=== PATIENT | female | born 1950 | race Caucasian/White ===

== ENCOUNTER 2017-01-10 13:27 | Inpatient (IN) | payer OTHER ==
[~2017-01-10] VITALS: Ht 160 cm; Wt 78.7 kg
--- NOTE | ~2017-01-10 | EKG ---
[address] [address] ELECTROCARDIOGRAM REPORT Name: SAMAN LAZARO Room #: 214-P ADM IN M.R.#: [id number] Admission: 01/11/17 Attend Phys: Ash Juarez MD Discharge: Date of : 46 Report #: [id number] THIS REPORT FOR: //name// [facility] Test Date: 2017-01-10 Test Time: 15:23:32 Pat Name: SAMAN LAZARO Department: Room: 214 P Gender: F Goodwill Representative: Tila RUIZ : 1950 Requested By: Aide Nicholson Order Number: [id number] MD: Moses Han Measurements Intervals [place] Rate: 90 P: 49 ME: 153 QRS: -21 QRSD: 109 T: 29 QT: 387 QTc: 474 Interpretive Statements Sinus rhythm Inferior infarct, old No previous ECG available for comparison Electronically Signed On 01-11-2017 13:29:50 CDT by Moses Han [email or web address] <ELECTRONICALLY SIGNED> By: Moses Han MD 01/11/17 1329 D: [id number] 22 Moses Han MD /FATMATA
--- NOTE | ~2017-01-10 | P ---
[facility] [place] [address] PROCEDURE REPORT Name: SAMAN LAZARO Room #: 214-P [facility] IN M.R.#: [id number] Admission: 01/11/17 Attend Phys: Ash Juarez MD Discharge: Date of : 46 Report #: [id number] THIS REPORT FOR: //name// CC: Dr. Kayla Earl MD DATE OF SERVICE: 01/11/2017 PROCEDURE PERFORMED: Upper endoscopy with bleeding control. HISTORY OF PRESENT ILLNESS: The patient is a 66-year-old female who is on Coumadin for history of DVT and pulmonary embolus. INR was supratherapeutic at 11 and came in with a hemoglobin of 7.3, is dropped to 5.9. She has been having black tarry stools. No previous history of GI bleed. She is on PPI therapy. Now, her Coumadin has been reversed and her INR today is 1.2, hemoglobin today 8.8, this was after transfusion. Plan is for EGD. DESCRIPTION OF PROCEDURE: The risks and benefits of the procedure were explained to the patient, those risks including but not limited to bleeding, perforation, the risk of sedation. She understood these risks and gave informed consent. Sedation was given using propofol per anesthesia. Next, using a standard Fujinon upper endoscope, the scope was placed in the patient's mouth and advanced under direct vision through the esophagus, stomach and into the second portion of the duodenum. The esophagus was normal throughout. The GE junction was normal. Overall, the gastric mucosa was normal in the fundus; however, in the body and antrum, there were multiple small erosions and a few small, clean white based ulcers. These were approximately 3 mm in size. There was no active bleeding. There was no blood noted throughout the entire exam today as well. The pylorus was normal and patent. The duodenal bulb was normal. In the first portion of the duodenum, a single 3 mm nonbleeding AVM was noted. This was cauterized with 7-Turkmen bipolar cautery. Another small AVM was noted in the second portion of the duodenum, also cauterized. Again, no active bleeding of either lesion. At this point, the scope was then withdrawn and the procedure terminated. The patient tolerated the procedure well. IMPRESSION: 1. 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 2. Multiple small erosions and a few small ulcers in the gastric antrum and body, no active bleeding. RECOMMENDATIONS: Etiology of recent melanotic stools may be secondary to ulcers or AVMs as described above. At this point, would recommend continue to hold [facility] [address] [place] [address] PROCEDURE REPORT Name: SAMAN LAZARO Room #: 214-P [facility] IN M.R.#: [id number] Admission: 01/11/17 Attend Phys: Ash Juarez MD Discharge: Date of : 46 Report #: [id number] Coumadin, continue PPI therapy and monitor. If the patient has further drop in her hemoglobin, may need to consider an M2 capsule of her small bile. Thank you for allowing me to participate in her care. <ELECTRONICALLY SIGNED> By: Juan Curry MD 01/11/17 1443 1255 1309 Juan Curry MD /nt
[~2017-01-10 13:27] MED LIST: ADVAIRDISKUS; ALBUTEROL NEB INH; AMITRIPTYLINE H50 M2 PO; ASPIRIN81 M2 PO; ATROVENT30 ML INH; COMBIVENT INH; GLUCOPHAGE500 MG PO; HYDROCODON-ACE1 EAC1 PO; IBUPROFEN 800800 M1 PO; JANTOVEN5 MG PO; K-DUR 20 MEQ T20 MEQ PO; LASIX 40 MG TAB40 M1 PO; LIPITOR40 MG PO; LORTAB 5 MG/5001 TA1 PO; PACERONE 200 M200 M1 PO; PAXIL30 MG PO; PHENERGAN12.5 M1 RE; PREDNISONE 10 M10 M1 PO; PROVENTIL HFA6.7 G1 INH; RECLAST 55 MG/100 M IV; SYMBICORT160 MCG/4. SPRAY; TESSALON200 MG PO
[2017-01-10 14:29] VITALS: BP 136/68
[2017-01-10] MEDS ORDERED: LEXAPRO 10 MG T10 MG PO (15:34)
[2017-01-10] MEDS ORDERED: SEROQUEL 50 MG50 MG PO (15:35)
[2017-01-10] MEDS ORDERED: IBUPROFEN 800800 M1 PO (15:36)
[2017-01-10] MEDS ORDERED: FLEXERIL PO (15:37)
[2017-01-10 16:14] LABS: URINE BILIRUBIN NEGATIVE (Negative); URINE BLOOD 3+ (Negative); URINE COLOR YELLOW; URINE GLUCOSE-RANDOM* NEGATIVE (Negative); URINE KETONES NEGATIVE (Negative); URINE LEUKOCYTES-REFLEX 2+ (Negative); URINE PROTEIN (DIPSTICK) 1+ (Negative); URINE UROBILINOGEN 0.2 E.U./dl (0.2-1.0)
[2017-01-10 16:25] LABS: CASTS None Seen /LPF (None Seen); CRYSTALS None Seen /LPF (None Seen); SQUAMOUS 0-3 Few /LPF (0-3); URINE RBC >20 Many /HPF (0-2); URINE WBC-REFLEX 6-15 Few /HPF (0-5)
[2017-01-10 16:37] VITALS: BP 127/57
[2017-01-10 16:58] LABS: WBC 16.7 thou/uL (4.0-11.0)
[2017-01-10 16:59] LABS: MCH 27.8 pg (26.0-34.0); MCHC 32.5 g/dL (28.0-37.0); MCV 85.4 fL (80.0-100.0); PLATELET COUNT 316 thou/uL (150-400); RBC 2.14 mil/uL (4.20-5.00); RDW 15.7 % (10.5-14.5)
[2017-01-10 17:01] LABS: MANUAL DIFF YES
[2017-01-10 17:02] LABS: HEMATOCRIT 18.3 % (37.0-47.0); HEMOGLOBIN 5.9 gm/dL (12.0-15.0)
[2017-01-10 17:05] LABS: CALCIUM 8.4 mg/dL (8.5-10.1); CREATININE 1.9 mg/dL (0.6-1.3); POTASSIUM 3.6 mmol/L (3.5-5.1)
[2017-01-10 17:09] LABS: INR 1.8; PROTIME 18.4 Seconds (9.3-11.4)
[2017-01-10 17:10] LABS: ALBUMIN 2.2 g/dL (3.4-5.0); TOTAL BILIRUBIN 0.3 mg/dL (<0.1-1.0); TOTAL PROTEIN 5.3 g/dL (6.4-8.2)
[2017-01-10 17:21] LABS: ABSOLUTE NEUTROPHILS 10.7 thou/uL (1.4-8.2); TOTAL CELL COUNT 100
[2017-01-10 17:22] LABS: ANISOCYTOSIS 2+; HYPOCHROMASIA SLIGHT; POLYCHROMASIA SLIGHT
[2017-01-10 18:41] VITALS: BP 109/61; BP 110/59
[2017-01-10 20:57] VITALS: BP 110/59
[2017-01-10 20:59] VITALS: BP 125/57; BP 87/46; BP 95/47
[2017-01-10 23:11] VITALS: BP 87/46
[2017-01-11] VITALS (7 sets, daily range): BP systolic 94–120; BP diastolic 48–71
[2017-01-11 00:25] LABS: HEMATOCRIT 21.5 % (37.0-47.0); HEMOGLOBIN 7.2 gm/dL (12.0-15.0)
[2017-01-11 03:15] LABS: GLYCOHEMOGLOBIN (HGB A1C) 5.2 % (4.8-5.6)
[2017-01-11 06:27] LABS: HEMOGLOBIN 8.8 gm/dL (12.0-15.0); INR 1.2; MCH 28.4 pg (26.0-34.0); MCHC 33.8 g/dL (28.0-37.0); MCV 84.1 fL (80.0-100.0); PROTIME 12.1 Seconds (9.3-11.4); RBC 3.1 mil/uL (4.20-5.00); RDW 16.9 % (10.5-14.5); WBC 10.4 thou/uL (4.0-11.0)
[2017-01-11 08:46] LABS: CHOLESTEROL 143 mg/dL (<200); HDL CHOLESTEROL 24 mg/dL (>40); LDL CHOLESTEROL 54 mg/dL (<100); TRIGLYCERIDE 329 mg/dL (<150); VLDL 66 mg/dL (<40)
[2017-01-11 08:54] LABS: CALCIUM 7.9 mg/dL (8.5-10.1); CREATININE 1.7 mg/dL (0.6-1.3); POTASSIUM 3.5 mmol/L (3.5-5.1)
[2017-01-12 03:20] VITALS: BP 116/56
[2017-01-12 05:34] LABS: HEMATOCRIT 25.9 % (37.0-47.0); HEMOGLOBIN 8.8 gm/dL (12.0-15.0); MCH 29.1 pg (26.0-34.0); MCV 85.5 fL (80.0-100.0); RBC 3.03 mil/uL (4.20-5.00); RDW 17.1 % (10.5-14.5); WBC 10.6 thou/uL (4.0-11.0)
[2017-01-12 05:54] LABS: CALCIUM 7.9 mg/dL (8.5-10.1); CREATININE 1.6 mg/dL (0.6-1.3); POTASSIUM 3.4 mmol/L (3.5-5.1)
[2017-01-12 08:10] VITALS: BP 124/64
[2017-01-12 09:44] VITALS: BP 124/64
[2017-01-12] MEDS ORDERED: PANTOPRAZOLE SO40 M1 PO (09:46)
[2017-01-12 09:47] VITALS: BP 124/64
[2017-01-12] MEDS ORDERED: MACRODANTIN50 M1 PO (09:47)
== END 2017-01-12 11:10 | disposition home or self-care (01) | DRG 377 ==
LOC: 2N 13:27
PROVIDERS: Hospitalist; Nurse Practitioner; Nurse Practitioner Adult Health
PROC: 0DJ08ZZ Inspection of Upper Intestinal Tract, Via Natural or Artificial Opening Endoscopic (ICD-10-PCS; principal; 2017-01-11)
PROC: 30233N1 Transfusion of Nonautologous Red Blood Cells into Peripheral Vein, Percutaneous Approach (ICD-10-PCS; 2017-01-11)
DX: K92.2 Gastrointestinal hemorrhage, unspecified (principal); E43 Unspecified severe protein-calorie malnutrition; D62 Acute posthemorrhagic anemia; N39.0 Urinary tract infection, site not specified; N17.9 Acute kidney failure, unspecified; J44.9 Chronic obstructive pulmonary disease, unspecified; E78.5 Hyperlipidemia, unspecified; E11.9 Type 2 diabetes mellitus without complications; Z88.6 Allergy status to analgesic agent; I11.9 Hypertensive heart disease without heart failure; Z88.8 Allergy status to other drugs, medicaments and biological substances; Z90.711 Acquired absence of uterus with remaining cervical stump; Z87.442 Personal history of urinary calculi; Z87.891 Personal history of nicotine dependence; Z86.711 Personal history of pulmonary embolism; Z86.718 Personal history of other venous thrombosis and embolism; Z79.899 Other long term (current) drug therapy; Z83.3 Family history of diabetes mellitus; Z82.49 Family history of ischemic heart disease and other diseases of the circulatory system; Z80.9 Family history of malignant neoplasm, unspecified; Z83.6 Family history of other diseases of the respiratory system; Q27.33 Arteriovenous malformation of digestive system vessel
CPT/HCPCS: 10081; 27000; 62110; 70005

== ENCOUNTER 2017-10-28 15:22 | Inpatient (IN) | payer OTHER ==
[~2017-10-28] VITALS: Ht 160 cm; Wt 82.6 kg
--- NOTE | ~2017-10-28 | EKG ---
[address] [address] ELECTROCARDIOGRAM REPORT Name: IVETHSAMAN LY Room #: 364-P ADM IN M.R.#: [id number] Admission: 10/28/17 Attend Phys: Devonte Thayer MD Discharge: Date of : 46 Report #: [id number] THIS REPORT FOR: //name// [facility] Test Date: 2017-10-28 Test Time: 19:35:22 Pat Name: SAMAN LAZARO Department: Room: 364 P Gender: F Clinical Lab Scientist: Tila RUIZ : 1950 Requested By: Devonte Thayer Order Number: [id number] MD: Fracisco Fregoso Measurements Intervals [place] Rate: 62 P: 25 [place]: 154 QRS: -41 QRSD: 96 T: 51 QT: 406 QTc: 413 Interpretive Statements Sinus rhythm RSR' in V1 or V2, probably normal variant Inferior infarct, old Abnormal T, consider ischemia, anterior leads Compared to ECG 01/10/2017 15:23:32 RSR' in V1 or V2 now present Electronically Signed On 10-29-2017 8:51:10 ICU REGISTERED NURSE by Fracisco Fregoso [email or web address] <ELECTRONICALLY SIGNED> By: Fracisco Fregoso MD, [facility] 10/29/17 0851 34 34 Fracisco Fregoso MD, FAC /EPI
--- NOTE | ~2017-10-28 | H ---
[facility] [place] [address] HISTORY AND PHYSICAL Name: SAMAN LAZARO Room #: 364-P ADM IN M.R.#: [id number] Admission: 10/28/17 Attend Phys: Devonte Thayer MD Discharge: Date of : 46 Report #: [id number] THIS REPORT FOR: //name// CC: [facility] physician/PCP Devonte WORRELL DATE OF SERVICE: 10/28/2017 ATTENDING PHYSICIAN: Dr. Pitt. PRIMARY CARE PHYSICIAN: Dr. Tony Tran. CHIEF COMPLAINT: EKG changes. HISTORY OF PRESENT ILLNESS: The patient is a 67-year-old female who was initially evaluated at [facility] for cough and increasing shortness of breath that has been going on for about 2 weeks. She was diagnosed with pneumonia and was given antibiotics. Her oxygen saturation on arrival was 87% on room air and she was placed on oxygen. She does have underlying COPD. She was noted to have some mild EKG changes including some moderate T wave abnormalities, so she was sent to [facility] for further cardiac evaluation. She denies any history of coronary artery disease. She reports some occasional chest pain episodes in which she describes the sensation in her chest as a discomfort that is followed by what she describes as "it feels like something is released from my chest." She then had some heart pounding or palpitations. This has been going on intermittently for the last week. It has been associated with rest and with activity. She overall has had decreased energy and generalized weakness. She had a cardiac evaluation, it looks like in 2013, here which showed an echo with an EF of 50%-55% with severe hypokinesis in basal inferoseptal and basal and mid inferior and inferolateral myocardium. She also had a heart catheterization at that time, which did not show any coronary artery disease. She is currently resting comfortably, in no acute distress. She also had an admission last week for elevated INR. Her INR was 14 on 10/16. She was given vitamin K and her Coumadin dose was adjusted. She ended up having anemia and also received 2 units of blood, but was not noted to have any GI bleeding. She did restart Coumadin about 4 days ago and her current INR is 2.7. She has had a cough, which she states has mostly been nonproductive. She denies any fevers. PAST MEDICAL HISTORY: Nephrolithiasis, pulmonary embolism x 4, asthma, COPD, depression, anxiety, diet-controlled diabetes, and chronic kidney disease stage 3. PAST SURGICAL HISTORY: Ventral hernia repair, exploratory laparotomy, partial hysterectomy, right thoracotomy and decortication, tummy tuck and IVC filter [address] [address] HISTORY AND PHYSICAL Name: SAMAN LAZARO MALACHI Room #: 364-P [facility] IN M.R.#: [id number] Admission: 10/28/17 Attend Phys: Devonte Thayer MD Discharge: Date of : 46 Report #: [id number] [address]. ALLERGIES: CODEINE AND HYDROMORPHONE, BOTH CAUSE MENTAL STATUS CHANGES and DIAZEPAM CAUSES A RASH. HOME MEDICATIONS: Cyclobenzaprine 20 mg t.i.d. p.r.n.; Coumadin 2 mg Saturday, Saturday and 4 mg on week days; propranolol 10 mg , ibuprofen p.r.n.; Lexapro 15 mg daily, Seroquel 600 mg at bedtime, ranitidine 300 mg daily, Protonix 40 mg b.i.d. SOCIAL HISTORY: The patient is an ex-smoker, having quit in 1993, was smoking up to 1 pack per day for about 15 years. Denies any alcohol use. She is a . She is a retired RN. She had been living alone, but her son and adopted grandson recently moved in with her. FAMILY HISTORY: Significant for an abdominal aneurysm with her mother as well as coronary artery disease, cancer, COPD, diabetes, hypertension and a blood disorder. REVIEW OF SYSTEMS: Twelve-point review of systems was reviewed with the patient, otherwise negative unless stated in the HPI. PHYSICAL EXAMINATION: GENERAL: The patient is an alert female, in no acute distress. VITAL SIGNS: Temperature is 36.9, heart rate , respirations 18, blood pressure 126/93, oxygen 93% on 2 liters O2. HEENT: PERRLA. Sclerae is nonicteric. Oral mucosa is pink and moist. NECK: Supple, no JVD noted. CARDIAC: Normal S1, S2. No murmurs, rubs or gallops. RESPIRATORY: Breath sounds are clear bilateral upper lobes. She is diminished in the right base. Breathing is nonlabored. No coughing noted. ABDOMEN: Round, soft, nontender, nondistended with positive bowel sounds. VASCULAR: No edema noted. Pedal pulses are 2+. No calf tenderness. NEUROLOGIC: The patient is alert and oriented x 3. Speech is clear. She is moving all extremities equally. No focal neuro deficits noted. PSYCHIATRIC: The patient is calm and cooperative. LABORATORY AND DIAGNOSTICS: Blood work done this evening showed WBC of 9.9, hemoglobin of 12, platelets of 186. Sodium 140, potassium 4.1, BUN 26, creatinine 1.7, glucose 116, magnesium 1.9. INR 2.7. LFTs within normal limits. Troponin is negative. UA positive for nitrite and moderate leukocyte esterase. Chest x-ray showed a right lower lobe infiltrate. An EKG done at [facility] showed moderate T wave abnormalities concerning for anterior ischemia. ASSESSMENT AND PLAN: [facility] [address] [place] [address] HISTORY AND PHYSICAL Name: SAMAN LAZARO MALACHI Room #: 364-P ADM IN M.R.#: [id number] Admission: 10/28/17 Attend Phys: Devonte Thayer MD Discharge: Date of : 46 Report #: [id number] 1. Pneumonia. The patient will be continued on Rocephin and Zithromax and I will add DuoNebs. She had blood cultures drawn at [facility] and we will follow those. She is currently nontoxic appearing. 2. Urinary tract infection. Urine culture at [facility], we will continue Rocephin. 3. T wave abnormality. She has had some recent chest pain. Troponins are negative. We will consult Cardiology for further evaluation. 4. Generalized weakness. This may be due to infection versus cardiac etiology. We will continue antibiotics and proceed with Cardiology's recommendations. 5. History of pulmonary embolism. The patient is on Coumadin, her INR was recently elevated but no gastrointestinal bleeding. Her INR is currently therapeutic at 2.7. Continue Coumadin as currently dosed. 6. Uqjor-iy-eomveud hypoxic respiratory failure, wean oxygen as able. This is likely due to pneumonia and chronic obstructive pulmonary disease exacerbation. We will continue with breathing treatments and antibiotics. She does not need any steroids at this time. 7. Chronic kidney disease stage 3. Previous labs from 12/2016 showed a creatinine ranging from 1.6-1.9, so she is at baseline. Continue to monitor labs. 8. Deep venous thrombosis prophylaxis. Continue with Coumadin. We will continue to follow the patient closely throughout the hospitalization and make changes based on clinical status. <ELECTRONICALLY SIGNED> By: ADAM London 10/29/17 1000 0712 0825 ADAM London /nt
--- NOTE | ~2017-10-28 | 2DMMODE ---
[facility] [address] [place] [address] 2 D/M-MODE ECHOCARDIOGRAM Name: LAZAROSAMAN Room #: 364-P [facility] IN M.R.#: [id number] Admission: 10/28/17 Attend Phys: Devonte Thayer, Discharge: Date of : 46 Date of Service: 10/29/17 1051 Report #: [id number] THIS REPORT FOR: //name// APPROVED REPORT Study performed: 10/29/2017 10:12:18 EXAM: Comprehensive 2D, Doppler, and color-flow Echocardiogram Patient Location: Echo lab Room #: 364 Status: routine BSA: 1.85 HR: 72 bpm BP: 110/73 mmHg Rhythm: NSR Other Information Study Quality: Adequate/Poor parasternal window Technically limited study due to lung disease. Indications Palpitations Wide complex tachycardia, EF 50-55%, COPD 2D Dimensions RVDd: 28.75 mm LVEF(%): 61.43 (>50%) IVSd: 12.42 (7-11mm) LVOT Diam: 21.30 (18-24mm) LVDd: 40.39 mm PWd: 11.08 (7-11mm) Ascending Ao: 37.07 (22-36mm) LVDs: 27.24 (25-40mm) Aortic Root: 35.02 mm Davenport's LVEF: 61.43 % Volumes Left Atrial Volume (Systole) Single Plane 4CH: 20.04 mL Single Plane 2CH: 37.88 mL LA ESV Index: 17.00 mL/m2 Aortic Valve AoV Peak Julio César.: 1.22 m/s AO Peak Gr.: 5.99 mmHg LVOT Max P.92 mmHg LVOT Max V: 1.22 m/s MEKA Vmax: 3.54 cm2 [facility] [address] 2 D/M-MODE ECHOCARDIOGRAM Name: SAMAN LAZARO Room #: 364-P [facility] IN M.R.#: [id number] Admission: 10/28/17 Attend Phys: Devonte Thayer, Discharge: Date of : 46 Date of Service: 10/29/17 1051 Report #: [id number] Mitral Valve E/A Ratio: 0.6 MV Decel. Time: 402.92 ms MV E Max Julio César.: 0.57 m/s MV A Julio César.: 0.88 m/s MV PHT: 116.85 ms IVRT: 96.89 ms Pulmonary Valve PV Peak Julio César.: 0.67 m/s PV Peak Gr.: 1.80 mmHg Pulmonary Vein P Vein S: 0.64 m/s P Vein D: 0.52 m/s P Vein S/D Ratio: 1.23 Tricuspid Valve RAP Estimate: 5.00 mmHg Left Ventricle The left ventricle is normal size. There is normal LV segmental wall motion. Mild basal septal hypertrophy is present. Left ventricular systolic function is normal. LVEF is 60-65%. Mild diastolic dysfunction is present (impaired relaxation pattern). Right Ventricle The right ventricle is normal size. The right ventricular systolic function is normal. Atria The left atrium size is normal. The right atrium size is normal. Aortic Valve The aortic valve is not well visualized. No aortic regurgitation is present. There is no aortic valvular stenosis. Mitral Valve Mild mitral annular calcification. Trace mitral regurgitation. Tricuspid Valve The tricuspid valve is normal in structure. There is no tricuspid valve regurgitation noted. Unable to assess PA pressure. Pulmonic Valve [facility] [address] [place] [address] 2 D/M-MODE ECHOCARDIOGRAM Name: SAMAN LAZARO MALACHI Room #: 364-P [facility] IN .R.#: [id number] Admission: 10/28/17 Attend Phys: Devonte Thayer, Discharge: Date of : 46 Date of Service: 10/29/17 1051 Report #: [id number] Pulmonic valve is not well visualized. Great Vessels The aortic root is normal in size. The ascending aorta is normal in size. IVC is normal in size and collapses >50% with inspiration. Pericardium There is no pericardial effusion. <Conclusion> Left ventricular systolic function is normal. There is normal LV segmental wall motion. LVEF is 60-65%. Mild diastolic dysfunction. The aortic valve is not well visualized. No aortic regurgitation or stenosis Mild mitral annular calcification. Trace mitral regurgitation. Pulmonary artery pressure could not be reliably ascertained There is no pericardial effusion. <ELECTRONICALLY SIGNED> By: Fracisco Fregoso MD, FACC 10/29/17 105 50 105 Fracisco Fregoso MD, FACC /INF
[~2017-10-28 15:22] MED LIST changes: +FLEXERIL PO; +LEXAPRO 10 MG T10 MG PO; +MACRODANTIN50 M1 PO; +PANTOPRAZOLE SO40 M1 PO; +SEROQUEL 50 MG50 MG PO
[2017-10-28] MEDS ORDERED: COUMADIN 2 MG TA2 M1 PO ×2 (17:04→17:12)
[2017-10-28] MEDS ORDERED: QUETIAPINE FUM100 MG PO (17:06)
[2017-10-28] MEDS ORDERED: PROPRANOLOL 1010 MG PO (17:07)
[2017-10-28] MEDS ORDERED: FLEXERIL PO (17:08)
[2017-10-28] MEDS ORDERED: IBUPROFEN 800800 M1 PO (17:08)
[2017-10-28] MEDS ORDERED: ZANTAC 150MG T150 MG PO (17:09)
[2017-10-28] MEDS ORDERED: LEXAPRO 10 MG T10 MG PO (17:09)
[2017-10-28] MEDS ORDERED: COUMADIN 4 MG TA4 M1 PO (17:13)
[2017-10-28 18:31] VITALS: BP 126/93
[2017-10-28 20:16] LABS: HEMATOCRIT 36.2 % (37.0-47.0); MCH 30.1 pg (26.0-34.0); MCHC 33.2 g/dL (28.0-37.0); MCV 90.7 fL (80.0-100.0); RBC 3.99 mil/uL (4.20-5.00); RDW 14.9 % (10.5-14.5); WBC 9.9 thou/uL (4.0-11.0)
[2017-10-28 20:28] LABS: INR 2.7; PROTIME 27.4 Seconds (9.3-11.4)
[2017-10-28 20:40] LABS: ALBUMIN 2.6 g/dL (3.4-5.0); ANION GAP 8 mmol/L (7-16); BUN 26 mg/dL (7-18); CALCIUM 9.5 mg/dL (8.5-10.1); CHLORIDE 104 mmol/L (98-107); CO2 28 mmol/L (21-32); CREATININE 1.7 mg/dL (0.6-1.0); GLUCOSE 116 mg/dL (74-106); MAGNESIUM 1.9 mg/dL (1.8-2.4); POTASSIUM 4.1 mmol/L (3.5-5.1); SGOT 10 U/L (15-37); SGPT 19 U/L (30-65); SODIUM 140 mmol/L (136-145); TOTAL BILIRUBIN 0.3 mg/dL (<0.1-1.0); TOTAL PROTEIN 5.7 g/dL (6.4-8.2); TROPONIN-I < 0.04 ng/mL (<0.06)
[2017-10-28 22:13] VITALS: BP 118/64
[2017-10-29] VITALS (7 sets, daily range): BP systolic 101–135; BP diastolic 54–91
[2017-10-29 04:40] LABS: INR 2.9; PROTIME 29.5 Seconds (9.3-11.4)
[2017-10-30 01:16] LABS: URINE BILIRUBIN NEGATIVE (Negative); URINE BLOOD NEGATIVE (Negative); URINE CLARITY CLEAR; URINE COLOR YELLOW; URINE GLUCOSE-RANDOM* NEGATIVE (Negative); URINE KETONES NEGATIVE (Negative); URINE LEUKOCYTES-REFLEX NEGATIVE (Negative); URINE NITRITE-REFLEX NEGATIVE (Negative); URINE PROTEIN (DIPSTICK) NEGATIVE (Negative); URINE SPECIFIC GRAVITY 1.015 (1.005-1.035); URINE UROBILINOGEN 0.2 E.U./dl (0.2-1.0)
[2017-10-30 03:33] LABS: INR 2.3; PROTIME 23.6 Seconds (9.3-11.4)
[2017-10-30 04:15] VITALS: BP 102/70
[2017-10-30 08:09] VITALS: BP 109/57
[2017-10-30 08:52] LABS: HEMATOCRIT 36.8 % (37.0-47.0); HEMOGLOBIN 12.2 gm/dL (12.0-15.0); MCH 30.7 pg (26.0-34.0); MCHC 33.2 g/dL (28.0-37.0); MCV 92.4 fL (80.0-100.0); RBC 3.98 mil/uL (4.20-5.00); RDW 15.4 % (10.5-14.5); WBC 9.2 thou/uL (4.0-11.0)
[2017-10-30 08:53] LABS: CREATININE 1.8 mg/dL (0.6-1.0); MAGNESIUM 1.8 mg/dL (1.8-2.4); POTASSIUM 4.4 mmol/L (3.5-5.1)
[2017-10-30 12:59] VITALS: BP 135/8
[2017-10-30 15:30] VITALS: BP 114/66
[2017-10-30 19:57] VITALS: BP 113/60
[2017-10-31] VITALS: BP 108/69
[2017-10-31 03:59] LABS: HEMATOCRIT 34.6 % (37.0-47.0); HEMOGLOBIN 11.8 gm/dL (12.0-15.0); MCH 31.5 pg (26.0-34.0); MCHC 34.3 g/dL (28.0-37.0); RBC 3.76 mil/uL (4.20-5.00); RDW 15.1 % (10.5-14.5); WBC 9.6 thou/uL (4.0-11.0)
[2017-10-31 04:00] VITALS: BP 108/62
[2017-10-31 04:04] LABS: INR 2.7; PROTIME 27.4 Seconds (9.3-11.4)
[2017-10-31 04:15] LABS: CALCIUM 8.7 mg/dL (8.5-10.1); CREATININE 1.7 mg/dL (0.6-1.0); POTASSIUM 3.7 mmol/L (3.5-5.1)
[2017-10-31 04:17] VITALS: BP 134/58
[2017-10-31 04:21] LABS: MAGNESIUM 1.7 mg/dL (1.8-2.4)
[2017-10-31 06:18] VITALS: BP 105/55
[2017-10-31] MEDS ORDERED: CEFUROXIME500 MG PO (09:38)
[2017-10-31 09:39] VITALS: BP 118/64
[2017-10-31 11:13] VITALS: BP 118/64
== END 2017-10-31 12:30 | disposition home or self-care (01) | DRG 193 ==
LOC: 3W 15:22 → 2N 16:57 → 3W 18:59 → 2N 10-29 11:15 → ENTRNSPT 10-31 12:18 → EDTRNSPTSTS 10-31 12:20 → 2N 10-31 12:30
PROVIDERS: Internal Medicine
DX: J18.9 Pneumonia, unspecified organism (principal); J96.21 Acute and chronic respiratory failure with hypoxia; J44.0 Chronic obstructive pulmonary disease with (acute) lower respiratory infection; N39.0 Urinary tract infection, site not specified; I48.92 Unspecified atrial flutter; I48.91 Unspecified atrial fibrillation; N18.3 Chronic kidney disease, stage 3 (moderate); F41.9 Anxiety disorder, unspecified; F32.9 Major depressive disorder, single episode, unspecified; Z86.711 Personal history of pulmonary embolism; Z88.5 Allergy status to narcotic agent; Z88.8 Allergy status to other drugs, medicaments and biological substances; Z79.899 Other long term (current) drug therapy; Z82.49 Family history of ischemic heart disease and other diseases of the circulatory system; Z83.3 Family history of diabetes mellitus; Z80.9 Family history of malignant neoplasm, unspecified
CPT/HCPCS: 10081; 10879